=== PATIENT | male | born 1945 | race Caucasian/White ===

== ENCOUNTER 2017-07-27 13:02 | Emergency (ER) | payer MEDICARE, OTHER, SELFPAY | END 2017-07-27 19:25 | disposition short-term general hospital (02) | PROVIDERS: Emergency Provider Emergency Medicine; Visit Provider Emergency Medicine | DX: L03.221 Cellulitis of neck (principal) | CPT/HCPCS: 36415; 70491; 74010; 74019; 80053; 83605; 84145; 85025; 85610; 85730; 87040; 96365; 96366; 96368; 96375; 99058; 99285; J1100; J2270; J2543; J3370; Q9967 ==

== ENCOUNTER → 2017-08-15 10:50 | Outpatient (CLI) | payer OTHER, MEDICARE, SELFPAY | PROVIDERS: Visit Provider Internal Medicine Critical Care Medicine | DX: R06.02 Shortness of breath (principal); Z53.9 Procedure and treatment not carried out, unspecified reason ==

== ENCOUNTER → 2017-08-21 10:17 | Outpatient (CLI) | payer MEDICARE, OTHER, SELFPAY ==
--- NOTE | 2017-08-28 11:02 | PM.PFT.1 ---
Pulmonary Function Test Referral & Results Date Patient Seen: 08/21/17 Requesting provider: Elvia Kaye Results: The spirometry demonstrates an FVC of 3.38 L which is 60% of predicted. The FEV1 was measured at 2.26 L which is 62% of predicted. The FEV1/FVC ratio was 67 which is 91% of predicted. Following the administration of bronchodilator there was a 10% improvement in FEV1 and a 57% improvement in the FEF 25-75%. Lung volumes show an SVC of 3.64 L which is 72% of predicted. The diffusing capacity was measured at 14.01 which is 38% of predicted. No hemoglobin value was provided, so no correction for potential anemia could be made, if appropriate. The maximum voluntary ventilation was normal. Interpretation: This study demonstrates moderate obstructive lung disease with some limited evidence of benefit following bronchodilator administration, particularly in small airway flows based on improvement in FEF 25-75% There is mild restrictive lung disease present There is a significant reduction in diffusing capacity suggesting significant disease at the capillary alveolar level. Patient may well be hypoxic on room air at times given the degree of reduction in diffusing capacity.
== END ==
PROVIDERS: Visit Provider Internal Medicine Critical Care Medicine
DX: R06.02 Shortness of breath (principal)
CPT/HCPCS: 94010; 94060; 94726; 94729